=== PATIENT | female | born 1955 | race Caucasian/White ===

== ENCOUNTER → 2021-05-28 | Outpatient (CLI) | payer MEDICARE | LOC: M.RAD 14:24 | PROVIDERS: ATTEND Nurse Practitioner Family | DX: R05 Cough (principal); R07.9 Chest pain, unspecified ==

== ENCOUNTER → 2021-07-09 | Outpatient (CLI) | payer MEDICARE ==
--- NOTE | 2021-07-09 10:25 | 2DMMODE ---
[place] [address] 2 D/M-MODE ECHOCARDIOGRAM Name: MIGUEL AGUIRRE Room: [facility]#: [id number] Admission: 07/09/21 Attend Phys: Elsie Reveles Discharge: Date of : 55 Date of Service: 07/09/21 1025 Report #: [id number] THIS REPORT FOR: cc: Elsie Montiel,Sonido Cardona MD [facility] ~ APPROVED REPORT Study performed: 07/09/2021 08:38:29 EXAM: Comprehensive 2D, Doppler, and color-flow Echocardiogram Patient Location: Out-Patient BSA: 1.93 HR: 97 bpm BP: 132/78 mmHg Other Information Study Quality: Good Indications Dyspnea 2D Dimensions IVSd: 9.90 (7-11mm) LVOT Diam: 19.96 (18-24mm) LVDd: 41.63 mm PWd: 9.66 (7-11mm) Ascending Ao: 32.11 (22-36mm) LVDs: 25.51 (25-40mm) Aortic Root: 29.60 mm Volumes Left Atrial Volume (Systole) LA ESV Index: 11.90 mL/m2 Aortic Valve AoV Peak Te.: 1.43 m/s AO Peak Gr.: 8.18 mmHg LVOT Max P.73 mmHg AO Mean Gr.: 4.69 mmHg LVOT Mean P.78 mmHg LVOT Max V: 1.20 m/s AO V2 VTI: 25.32 cm LVOT Mean V: 0.77 m/s YESSY (VTI): 3.38 cm2 LVOT V1 VTI: 27.34 cm Mitral Valve E/A Ratio: 0.81 [place] [address] 2 D/M-MODE ECHOCARDIOGRAM Name: MIGUEL AGUIRRE Room: [facility]#: [id number] Admission: 07/09/21 Attend Phys: Elsie Reveles Discharge: Date of : 55 Date of Service: 07/09/21 1025 Report #: [id number] MV Decel. Time: 229.99 ms MV E Max Te.: 0.79 m/s MV PHT: 66.70 ms MVA (PHT): 3.30 cm2 TDI E/Lateral E': 7.90 E/Medial E': 9.88 Medial E' Te.: 0.08 m/s Lateral E' Te.: 0.10 m/s Pulmonary Valve PV Peak Te.: 1.10 m/s PV Peak Gr.: 4.81 mmHg Tricuspid Valve RAP Estimate: 5.00 mmHg TR Peak Gr.: 25.60 mmHg RVSP: 30.60 mmHg PA Pressure: 30.60 mmHg Left Ventricle The left ventricle is normal size. There is normal LV segmental wall motion. There is normal left ventricular wall thickness. Left ventricular systolic function is normal. The left ventricular ejection fraction is within the normal range. LVEF is 55-60%. Grade I - abnormal relaxation pattern. Right Ventricle The right ventricle is normal size. The right ventricular systolic function is normal. Atria The left atrium size is normal. The right atrium size is normal. Aortic Valve The aortic valve is normal in structure. No aortic regurgitation is present. There is no aortic valvular stenosis. Mitral Valve The mitral valve is normal in structure. There is trace mitral valve regurgitation noted. No evidence of mitral valve stenosis. Tricuspid Valve The tricuspid valve is normal in structure. Mild tricuspid regurgitation. [place] [address] 2 D/M-MODE ECHOCARDIOGRAM Name: MIGUEL AGUIRRE Room: [facility]#: [id number] Admission: 07/09/21 Attend Phys: Elsie Reveles Discharge: Date of : 55 Date of Service: 07/09/21 1025 Report #: [id number] The pulmonary valve is normal in structure. There is no pulmonic valvular regurgitation. Great Vessels The aortic root is normal in size. IVC is normal in size and collapses >50% with inspiration. Pericardium There is no pericardial effusion. <Conclusion> Left ventricular systolic function is normal. The left ventricular ejection fraction is within the normal range. <ELECTRONICALLY SIGNED> By: Sonido Mojica MD, [facility] 07/09/21 1025 1025 1025 Sonido Mojica MD, [facility] /INF
== END ==
LOC: M.CRD 06-25 10:00
PROVIDERS: ATTEND Nurse Practitioner Family
DX: I07.1 Rheumatic tricuspid insufficiency (principal); R55 Syncope and collapse

== ENCOUNTER → 2021-07-20 | Outpatient (CLI) | payer MEDICARE | LOC: M.RAD 09:09 | PROVIDERS: ATTEND Nurse Practitioner Family | DX: Z12.31 Encounter for screening mammogram for malignant neoplasm of breast (principal) ==